=== PATIENT | female | born 1980 | race African-American/Black ===

== ENCOUNTER 2021-05-01 04:59 | Emergency (ER) | payer MEDICAID ==
[2021-05-01] MEDS ORDERED: ACETAMINOPHEN 500 MG TAB PO ONE (05:45)
[2021-05-01 06:02] LABS: Basophils # (Auto) 0.1 K/mm3 (0.0-0.1); Basophils % (Auto) 0.6 % (0.0-1.8); Eosinophils # (Auto) 0.8 K/mm3 (0.0-0.4); Eosinophils % (Auto) 6.6 % (0.0-4.3); Hematocrit 39.4 % (30.3-42.9); Hemoglobin 12.4 gm/dl (10.1-14.3); Lymphocytes # (Auto) 2.4 K/mm3 (1.2-5.4); Lymphocytes % (Auto) 19.6 % (13.4-35.0); Mean Corpuscular HGB Conc 31 % (30-34); Mean Corpuscular Volume 79 fl (79-97); Monocytes # (Auto) 0.7 K/mm3 (0.0-0.8); Monocytes % (Auto) 5.9 % (0.0-7.3); Platelet Count 379 K/mm3 (140-440); Red Blood Count 5.01 M/mm3 (3.65-5.03); Red Cell Distribution Width 14.5 % (13.2-15.2)
[2021-05-01] MEDS ORDERED: ONDANSETRON 4 MG/2 ML INJ IV ONE (06:15)
[2021-05-01] MEDS ORDERED: KETOROLAC 30 MG/1 ML INJ IV ONE (06:15)
[2021-05-01] MEDS ORDERED: SODIUM CHLORIDE 0.9% 1000 ML 1,000 ML IV ONE (06:15)
[2021-05-01 06:18] LABS: Alanine Aminotransferase 12 units/L (7-56); Albumin 4.4 g/dL (3.9-5); Blood Urea Nitrogen 10 mg/dL (7-17); Calcium 9.4 mg/dL (8.4-10.2); Hemolysis Index 4
[2021-05-01 06:21] LABS: BUN/Creatinine Ratio 14
--- NOTE | 2021-05-01 06:45 | Event Note ---
ED Screening Note Date of service: 05/01/21 Time: 05:40 ED Screening Note: Patient is a 41-year-old female with a history of deafness and some developmental delay and who lives in a residential presents to the ED with complaint of acute onset diffuse suprapubic pain, dysuria, urinary frequency and urgency, low back pain, nasal and sinus congestion and persistent cough for the last 1 week, worse in the last 2 days. Patient states that she walked from the facility where she lives to the ED because her caregiver would not bring her to the hospital. Patient denies fever, chills, dizziness, syncope, chest pain or shortness of breath, diarrhea, vaginal bleeding, vaginal discharge or palpitati ons or traumatic injury or fall. History is difficult to obtain from the patient because even through the tower air traffic control specialist the patient tangentially speaks, changing topics given her entire history but appears to have problem comprehending questions. Physical exam is positive for diffuse lower abdominal tenderness to palpation and dry mucous membranes. This initial assessment/diagnostic orders/clinical plan/treatment(s) is/are subject to change based on patients health status, clinical progression and re- assessment by fellow clinical providers in the ED. Further treatment and workup at subsequent clinical providers discretion. Patient/guardian urged not to elope from the ED as their condition may be serious if not clinically assessed and managed. Initial orders include: CBC, CMP, UA, serum hCG, lipase, CT abdomen without contrast, normal saline
[2021-05-01 06:52] LABS: Bilirubin,Urine NEG (Negative); Blood,Urine NEG (Negative); Calcium Oxalate Crystals,Urine 3+; Color,Urine Yellow (Yellow); Protein,Urine <15 mg/dL mg/dL (Negative); Urobilinogen,Urine < 2.0 mg/dL (<2.0)
--- NOTE | 2021-05-01 07:15 | Cat Scan Report ---
CT ABDOMEN AND PELVIS WITHOUT CONTRAST INDICATION / CLINICAL INFORMATION: Diffuse lower abdominal pain. TECHNIQUE: Axial CT images were obtained through the abdomen and pelvis without IV contrast. All CT scans at this location are performed using CT dose reduction for ALARA by means of automated exposure control. COMPARISON: None available. FINDINGS: LOWER CHEST: Small bilateral pleural effusions. LIVER: No significant abnormality. GALLBLADDER: No significant abnormality. BILE DUCTS: No significant abnormality. PANCREAS: No significant abnormality. SPLEEN: No significant abnormality. ADRENALS: No significant abnormality. RIGHT KIDNEY / URETER: No significant abnormality. LEFT KIDNEY / URETER: No significant abnormality. STOMACH / SMALL BOWEL: No significant abnormality. COLON: Moderate colonic stool. APPENDIX: No significant abnormality. PERITONEUM: No free fluid. No free air. No fluid collection. LYMPH NODES: No significant adenopathy. VASCULAR STRUCTURES: No significant abnormality. URINARY BLADDER: No significant abnormality. REPRODUCTIVE ORGANS: 5.9 cm left ovarian cyst. ADDITIONAL FINDINGS: None. SKELETAL SYSTEM: No significant abnormality. IMPRESSION: 1. 5.9 cm left ovarian cyst. 2. Moderate colonic stool. 3. Small bilateral effusions. Signer Name: Coy Yoo MD Signed: 05/01/2021 7:11 AM Workstation Name: [id number]
[2021-05-01] MEDS ORDERED: cefTRIAXone/NS 1 GM/50 ML 1 GM/50 ML BAG IV ONE (07:33)
--- NOTE | 2021-05-01 07:43 | Emergency Department Report ---
ED Abdominal Pain HPI - General Chief Complaint: Abdominal Pain Stated Complaint: PREGANCY COMPLAINT Time Seen by Provider: 05/01/21 06:45 Source: patient Mode of arrival: Ambulatory Limitations: Language Barrier - History of Present Illness Initial Comments: Patient is a 41-year-old female with a history of deafness and some developmental delay. Patient lives in a fdc, she presents to the ED with complaint of acute onset diffuse suprapubic pain, dysuria, urinary frequency and urgency, low back pain, nasal and sinus congestion and persistent cough for the last 1 week, worse in the last 2 days. Patient states that she walked from the facility where she lives to the ED because her caregiver would not bring her to the hospital. Patient denies fever, chills, dizziness, syncope, chest pain or shortness of breath, diarrhea, vaginal bleeding, vaginal discharge or palpitations or traumatic injury or fall. MD Complaint: abdominal pain -: days(s) Location: suprapubic Severity scale (0 -10): 6 Quality: dull Consistency: constant Associated Symptoms: nausea - Related Data Allergies Allergy/AdvReac Type Severity Reaction Status Date / Time Unable to Assess Allergy Verified 05/01/21 05:16 ED Review of Systems ROS: Stated complaint: PREGANCY COMPLAINT Other details as noted in HPI Comment: All other systems reviewed and negative Constitutional: denies: chills, fever ENT: congestion Respiratory: denies: cough, shortness of breath, SOB with exertion Cardiovascular: denies: chest pain, palpitations Gastrointestinal: abdominal pain, nausea. denies: vomiting, diarrhea, constipation, hematemesis, melena, hematochezia Genitourinary: urgency, dysuria, frequency. denies: hematuria, discharge Musculoskeletal: denies: back pain Neurological: denies: headache, weakness, numbness, paresthesias ED Physical Exam - General Limitations: Language Barrier General appearance: alert, in no apparent distress - Head Head exam: Present: atraumatic, normocephalic, normal inspection - Eye Eye exam: Present: normal appearance, PERRL - ENT ENT exam: Present: mucous membranes moist - Neck Neck exam: Present: normal inspection, full ROM. Absent: tenderness, meningismus - Respiratory Respiratory exam: Present: normal lung sounds bilaterally - Cardiovascular Cardiovascular Exam: Present: tachycardia - GI/Abdominal GI/Abdominal exam: Present: soft, tenderness, normal bowel sounds. Absent: di stended, guarding, rebound, rigid, mass, bruit, pulsatile mass, hernia - Extremities Exam Extremities exam: Present: normal inspection, full ROM, normal capillary refill. Absent: tenderness - Back Exam Back exam: Present: normal inspection, full ROM. Absent: CVA tenderness (R), CVA tenderness (L) - Neurological Exam Neurological exam: Present: alert, CN II-XII intact - Psychiatric Psychiatric exam: Present: normal mood - Skin Skin exam: Present: warm, intact, normal color ED Course Vital Signs 05/01/21 05/01/21 05:09 07:33 Temperature 97.7 F Pulse Rate 101 H Respiratory 19 16 Rate Blood Pressure 106/83 [Right] O2 Sat by Pulse 100 Oximetry ED Medical Decision Making - Lab Data Result diagrams: 05/01/21 05:38 05/01/21 05:38 - Radiology Data Radiology results: report reviewed - Medical Decision Making Patient is a 41-year-old female with a history of deafness and some developmental delay. Patient lives in a fdc, she presents to the ED with complaint of acute onset diffuse suprapubic pain, dysuria, urinary frequency and urgency, low back pain, nasal and sinus congestion and persistent cough for the last 1 week, worse in the last 2 days. Patient states that she walked from the facility where she lives to the ED because her caregiver would not bring her to the hospital. Patient denies fever, chills, dizziness, syncope, chest pain or shortness of breath, diarrhea, vaginal bleeding, vaginal discharge or palpitations or traumatic injury or fall. Patient labs reviewed and is unremarkable except for positive UTI. CT abdomen and pelvis showed a left ovarian cyst 5.6. I communicated with the patient's writing that she need to follow-up with oil rig roughneck as soon as possible for further management. Patient received Rocephin 1 g IV, morphine and Zofran. She also received normal saline. Patient stated that in writing that she is feeling better. Patient also pointed to her right leg indicating an area of eczema has been going on for a while. I will prescribe patient hydrocortisone cream and giving her Macrobid and Zofran and advised to follow-up with her primary doctor in the next 2 to 3 days and to return to the ER if she develop any new symptoms. Critical care attestation.: If time is entered above; I have spent that time in minutes in the direct care of this critically ill patient, excluding procedure time. ED Disposition Clinical Impression: Acute abdominal pain, Ovarian cyst, UTI (urinary tract infection), Eczema Disposition: 01 HOME / SELF CARE / HOMELESS Is pt being admited?: No Condition: Stable Instructions: Abdominal Pain (ED), Ovarian Cyst, [id number], Abdominal Pain, Adult, [id number], Urinary Tract Infection, Adult, Eczema Referrals: PRIMARY CARE, [Primary Care Provider] - 3-5 Days [facility] [Provider Group] - 3-5 Days
[2021-05-01 11:15] VITALS: BP 109/70
== END 2021-05-01 11:16 | disposition home or self-care (01) ==
LOC: EDBD 04:59 → ED 04:59
DX: N83.202 Unspecified ovarian cyst, left side (principal); N39.0 Urinary tract infection, site not specified; L30.9 Dermatitis, unspecified
CPT/HCPCS: 36415; 74176; 80053; 81001; 83690; 84703; 85025; 87076; 87086; 87186; 96365; 96375; 99284; J0696; J1885; J2405; J7030; Q0162